=== PATIENT | female | born 1960 | race Asian ===

== ENCOUNTER 2016-06-25 12:34 | Day surgery (SDC) | payer OTHER ==
[~2016-06-25] VITALS: Ht 160 cm; Wt 74.0 kg
[2016-06-25] VITALS (10 sets, daily range): BP systolic 120–136; BP diastolic 73–89; PULSE 79–91; RESP 14–19; O2SAT 95–100
--- NOTE | 2016-06-25 09:11 | PCM.HPANE ---
Patient Data Date of Service: Jun 25, 2016 Surgeon Admitting Provider: Attending Provider:Jon Quiñonez MD Primary Care Physician:Balbir Other Provider:Ino Bui Anesthesia Reason for Visit JASON-3 Ht/WT & BMI Height (Feet): 5 Height (Inches): 3 Weight (Kilograms): 74.842 Body Mass Index 29.00 Allergies Coded Allergies: No Known Allergies (Unverified , 06/25/16) Past Anesthesia History Anesthesia History: Denies:: Fam Anesthesia Reaction, Fam Malignant Hypertherm Diabetes History Hx Diabetes?: No ("PRE" DIABETES) MRSA MRSA: No Medications Reported Medications Ibuprofen 600 Mg [id number] Mg PO QID PRN For Pain Ref 0 06/24/16 Terbinafine (Lamisil)250 Mg [id number] Mg PO DAILY 06/24/16 Naproxen 500 Mg Mqn991 Mg PO BID PRN For Pain Ref 0 06/24/16 History History of ENT Problems?: No Hx of Heart Problems?: No Cardiovascular History: Denies:: Hypertension Hx of Respiratory Problem?: No Respiratory History: Denies:: Use of C-PAP Machine Hx Neurologic Problems?: No Hx of GI Problems?: No Hx of Problems?: No Female Hx: Denies:: Currently Skin History: Denies:: History Skin Disorders? Pressure Ulcers Hx Musculoskeletal Problems?: Yes Musculoskeletal History: Positive for:: Musculoskeletal Trauma (C/OF LT KNEE PAIN) Hx of Psycho/Social Problems?: No Hx Surgeries?: No Hx Any Other Health Problems?: No Other History: Denies:: Cancer Endocrine Disease Hospitalization Thyroid Disease Hx Diabetes: No ("PRE" DIABETES) Have You Smoked inLast 12 mo: No Stop/Bang Treated for Sleep Apnea?: No Do You Have a CPAP Machine?: No S-Snoring: Do You Snore Loudly: No T-Tired: feel tired, fatigued: No O-Obsered: Observed not breath: No P-Blood Pressure: treated: No B- Body Mass Index > 35 kg/m2: No A- Age over 50: Yes N- Neck Large Circumference: No G- Gender Male: No GARRETT Total Score: 1 GARRETT Risk Assessment: Low Risk, <3 Yes GARRETT Category 1: Yes Risk Assessment Category Category 1A: Patient has history of documented sleep apnea, and HAS NOT received any narcotic, sedative or anesthesia administration during this stay. Category 1B: Patient has history of documented sleep apnea, and HAS received any narcotic , sedative or anesthesia administration during this stay Category 2: Patient has SUSPECTED Obstructive Sleep Apnea, and HAS received any narcotic , sedative or anesthesia administration during this stay. Category 3: Patient has SUSPECTED Obstructive Sleep Apnea and HAS NOT received narcotic, sedative or anesthesia administration during this stay. Category 4: Outpatient in Procedural Areas with known sleep apnea or who screen positive for High Risk via the STOP/BANG questionnaire. Exam Exam General Appearance: Alert, Oriented X3, Cooperative, No Acute Distress HEENT/AIRWAY: MP 2, Mouth Opening (Prominent incisors) Lungs: Clear to Auscultation, Normal Air Movement Heart: Exam Unremarkable, Normal S1, Normal S2 Plan Impression Patient chart reviewed, patient interviewed and anesthestic plan with risks, benefits, and alternatives discussed, and informed consent obtained. ASA Physical Status: ASA1 Normal Healthy Anesthetic Plan: GA Bene/Risks/Altern/Consents: Yes HP Complete Prior to Induction: Yes Farshad Briscoe DO Jun 25, 2016 09:11
[~2016-06-25 12:34] MED LIST: IBUP-1827 PO; Ketamine 10 mg/mL 20 mL Inj ONE; NPR500T PO; TERB250T4 PO; fentaNYL-PF 50 mCg/mL 2 mL Inj ONE
[2016-06-25] MEDS: Lactated Ringer's 1,000 ML IV SCH ×2 (13:11→15:00)
[2016-06-25] MEDS ORDERED: oxyCODONE-Acetamin 5-325 mg Tablet PO PRN (14:15)
[2016-06-25] MEDS ORDERED: Ketorolac 15 mg/mL Inj IVPUSH ONE (14:15)
--- NOTE | 2016-06-25 14:18 | PCM.DIOB ---
Obstetrical Disch Instruction Date of Service: Jun 25, 2016 Dates of Hospitalization Date of Hospital Admission Providers Admitting Physician: Primary Care Physician: Nopcp Attending Physician: Jon Quiñonez MD Discharge Diagnosis Discharge Diagnosis S/P LEEP for JASON 3 in ECC and cervical biopsy Post Operative diagnosis S/P LEEP for JASON 3 in ECC and cervical biopsy Problems: Diet Discharge Diet: No restrictions Activity Discharge Activity-General: Pelvic Rest for 6 weeks (no sex , tampons nor douching), Be up and about, Balance rest and activity, Activity as pain allows, Activity as energy allows, No lifting >15 pounds for 2 weeks Dressing and Incisional Care Hygiene: May shower Follow Up Plan Follow-up Provider (F9): Jon Quiñonez MD Follow-up appointment: Weeks (2) Call your provider for: Fever or Chills, Shortness of breath, Heavy vaginal bleeding, Heavy bleeding, Epigastric pain, Excessive constipation Jon Quiñonez MD Jun 25, 2016 14:17
[2016-06-25] MEDS ORDERED: Lactated Ringer's 1,000 ML IV SCH (16:04)
[2016-06-25] MEDS ORDERED: Lactated Ringer's 500 ML IV PRN (16:04)
[2016-06-25] MEDS ORDERED: Atropine 0.4 mg/mL Inj IVPUSH PRN (16:05)
[2016-06-25] MEDS ORDERED: HYDROmorphone 1 mg/mL Inj IVPUSH PRN (16:05)
[2016-06-25] MEDS ORDERED: MetoCLOpramide 5 mg/mL 2 mL Inj IVPUSH PRN (16:05)
[2016-06-25] MEDS ORDERED: Phenylephrine 10,000 mCg/mL Inj IVPUSH PRN (16:05)
[2016-06-25] MEDS ORDERED: Dexamethasone 4 mg/mL Inj IVPUSH PRN (16:05)
[2016-06-25] MEDS ORDERED: EPHEDrine Sulfate 50 mg/mL Inj IVPUSH PRN (16:05)
[2016-06-25] MEDS ORDERED: Labetalol 5 mg/mL 4 mL Inj IV PRN (16:05)
[2016-06-25] MEDS ORDERED: fentaNYL-PF 50 mCg/mL 2 mL Inj IVPUSH PRN (16:05)
[2016-06-25] MEDS ORDERED: Ondansetron 2 mg/mL 2 mL Inj IVPUSH PRN (16:05)
[2016-06-25] MEDS ORDERED: Ketorolac 15 mg/mL Inj IM ONE (16:35)
[2016-06-25] MEDS ORDERED: Ketorolac 15 mg/mL Inj IV ONE (16:35)
--- NOTE | 2016-06-25 16:35 | PCM.ANEP1 ---
Post Anesthesia Phase 1 PACU Phase 1 Assessment Date of Service: Jun 25, 2016 Vital Signs Vital Signs Date Time Temp Pulse Resp B/P Pulse Ox O2 Delivery O2 Flow Rate FiO2 06/25/16 13:25 36.2 85 16 125/76 95 Room Air Anesthetic Administered: GA Level of Alertness: Drowsy, not talking LACY's with Equal Strength: Yes Pain: No Nausea or Vomiting: No Oxygen Delivery: Simple Mask Lungs: Clear to Auscultation, Normal Air Movement Dermatome Level: Full Sensation Farshad Briscoe DO Jun 25, 2016 16:35
--- NOTE | 2016-06-25 16:51 | PCM.ANEP2 ---
Post Anesthesia Evaluation ASA/CMS Post Anesthesia Date of Service: Jun 25, 2016 VS in Patient's Normal Range?: Yes Resp Stable; Airway Patent?: Yes CV Function & Hydration Stable: Yes Mental Status Recovered?: Yes Pain control Satisfactory?: Yes N/V Control Satisfactory?: Yes Farshad Briscoe DO Jun 25, 2016 16:51
--- NOTE | 2016-06-25 18:07 | OP ---
[address] [address] OPERATIVE REPORT PATIENT: MONIKA PEDERSON : 1960 MR#: [id number] ADMIT: 06/25/2016 JOB ID: [id number] DATE OF SURGERY: 06/25/2016 PREOPERATIVE DIAGNOSIS(ES): Sever Cervical Intraepithelial Neoplasia (JASON-3) in endocervical curettage and cervical biopsy. POSTOPERATIVE DIAGNOSIS(ES): Sever Cervical Intraepithelial Neoplasia (JASON-3) in endocervical curettage and cervical biopsy. OPERATION PERFORMED: Loop electrosurgical excision procedure of the cervical transformation zone with top-hat excision of endocervical canal and endocervical curetting. SURGEON: Jon Quiñonez MD INNER TUBE INSERTER: Elliot Higgins MD. Adjunct History Instructor was needed for retraction and exposure. ANESTHESIA: General. FINDINGS: Exam under anesthesia revealed a retroverted, retroflexed eight week size uterus, mobile. No palpable adnexal masses. After application of Lugol's solution revealed an area of non-uptake around the entire squamocolumnar junction and transformation zone, extended more anteriorly at 12 o'clock. Otherwise, no gross cervical masses or abnormalities. SPECIMENS: Endocervical curettings, endocervical canal, anterior cervical lip and posterior cervical lip. ESTIMATED BLOOD LOSS: 25 mL. IV FLUIDS: 600 mL of crystalloid fluid. COMPLICATIONS: None. IMPLANTS: None. PROCEDURE: after informed consent was obtained, the patient was taken to the operation room. She was placed under general anesthesia. Then, she was placed in dorsal lithotomy position. She was prepped and draped in usual sterile fashion. A weighted speculum was placed in the posterior vaginal vault. Anterior retractor was placed with good visualization of the cervix. Anterior lip of the cervix was grasped with single-tooth tenaculum. Lugol solution was used to paint the entire cervix. The area of non-uptake was noted, as mentioned above. Then, a size 2 x 0.8 cm loop electrode was used to excise the anterior part and inferior part of the cervical lip to include the area of decreased/ non-uptake of the lugol's solution. A 3rd pass was performed in the inferior aspect of the cervical lip to obtain clear margins. Then a smaller size loop electrode 1.5 x 1.2 cm was used to obtain a top-hat fashion excision sample from the endocervix. Then, silver roller ball cautery was used to cauterize the excised specimen bed with excellent hemostasis. Then, endocervical curettage was performed. All specimens were sent to Pathology. The single-tooth tenaculum was removed from the anterior cervical lip. The site of the tenaculum insertion was hemostatic. Monsel's solution was applied at the cervix at the excised specimen bed and the site of the tenaculum insertion. All instruments were removed. The patient tolerated the procedure well and was transferred to the recovery room in a stable condition. All instrument, needle, sponge counts were correct x2. I, Jon Quiñonez MD, was present and scrubbed for the entire procedure. SONNY
--- NOTE | 2016-06-29 14:16 | PATH ---
SURGICAL PATHOLOGY Attending Physician:Jon Quiñonez CASE STATUS: Signed Out PATIENT NAME: MONIKA PEDERSON PID: [id number] : 1960 DATE COLLECTED:06/25/2016 22:33 SPECIMEN: 1: Endocervix, Curettage 2: Cervix, Leep 3: Cervix, Leep 4: Cervix, Leep CLINICAL HISTORY: JASON-3 1). ENDOCERVICAL CURETTAGE 2). ANTERIOR CERVICAL LIP 3). POSTERIOR CERVICAL LIP 4). ENDOCERVICAL CANAL (IN TWO PEICES) FINAL DIAGNOSIS: 1.ENDOCERVICAL CURETTINGS: TISSUE FRAGMENTS PRESENT HIGHLY SUSPICIOUS FOR HIGH-GRADE SQUAMOUS INTRAEPITHELIAL LESION, HOWEVER, HISTOLOGY IS LIMITED DUE TO SEVERE CAUTERY ARTIFACT. 2.ANTERIOR CERVICAL LIP BIOPSY: HIGH-GRADE SQUAMOUS INTRAEPITHELIAL LESION (JASON 3) INVOLVING THE 12-3 QUADRANT THE 9-12 QUADRANT. 3.POSTERIOR CERVICAL LIP: NEGATIVE FOR DEFINITE SIGNIFICANT ATYPIA; HOWEVER, HISTOLOGY IS LIMITED DUE TO SEVERE CAUTERY ARTIFACT. 4.ENDOCERVICAL CANAL BIOPSIES:CHANGES HIGHLY SUSPICIOUS FOR HIGH-GRADE SQUAMOUS INTRAEPITHELIAL LESION; HOWEVER, HISTOLOGIC EVALUATION GREATLY LIMITED DUE TO SEVERE CAUTERY ARTIFACT. ICD10 CODE D06.9 GROSS DESCRIPTION: The specimens are received in formalin, labeled with the patient's name, and sublabeled as the following: (1) E. C. C.; (2) anterior cervical lip; (3) posterior cervical lip; (4) cervical cannal. (1) The specimen consists of clear colorless gelatinous material containing speckles of hemorrhagic tissue (0.9 x 0.5 x 0.1 cm). Section code: (1A) tissue. Specimen totally submitted. (2) The specimen consists of a piece of cervical tissue designated as anterior cervical lip (0.4 cm 12:00 to 6:00, 2.5 cm 3:00 to 12:00, 2.5 centimeters superficial to deep). The mucosa is warren-rincon smooth shiny with an indented focally dark brown-pink area (0.9 x 0.6 x 0.1 cm) located 0.1 cm from the superficial and deep resection margins within the 12:00 to 3:00 region. The endocervix is rincon and finely granular. No nodules, masses, lesions, other irregular areas are identified. Ink code: blue-radial; black-deep. Section code: (2A) 12:00 to 3:00; (2B) 9:00 to 12:00. Specimen entirely submitted. (3) The specimen consists of 2 pieces of cervical tissue designated as posterior cervical lip (piece #1: 0.4 cm 12:00 to 6:00 , 1.6 cm in 3:00 to 9:00, 1.5 cm superficial to deep; piece #2: 0.4 cm 12:00 to 6:00, 2.5 cm 3:00 to 9:00, 1.1 cm superficial to deep). The mucosa is rincon-pink smooth shiny and flat. The endocervix is rincon and finely granular. No nodules, masses or lesions are identified. Ink code: blue-radial; black-deep. Section code: (3A) piece #1, serially sectioned; (3B) piece #2, serially sectioned. Specimen entirely submitted. (4) The specimen consists of 2 pieces of cervical tissue designated as endocervical canal (piece #1:1.6 x 1.1 x 0.2 cm; piece #2:1.7 x 1.5 x 0.2 cm). The pieces cannot be oriented as other than for the radial margin. Both pieces are rincon and focally pale burgos and bosselated. Ink code: blue-radial. Section code: (4A) piece #1, serially sectioned; (4B) piece #2, serially sectioned. Specimen entirely submitted. 06/27/16 JM MICRO DESCRIPTION: See diagnosis. ICD-9 CODES: CPT CODES: 1: 77292 2: 11075 3: 44201 4: 30490 Electronically Signed Out Naun Patino MD [facility] [address], [place] [address] Technical component performed at [facility], [address], [place], [address]
== END 2016-06-25 23:59 | disposition home or self-care (01) ==
LOC: SAS 12:34
PROVIDERS: ATTEND Obstetrics & Gynecology
DX: D06.0 Carcinoma in situ of endocervix (principal); R73.03 Prediabetes
CPT/HCPCS: 57522; 88305; 88307; J1885; J2250; J3010; J7120

== ENCOUNTER → 2017-01-21 | Day surgery (SDC) | payer OTHER ==
[2017-01-21] VITALS (7 sets, daily range): BP systolic 98–144; BP diastolic 53–82; PULSE 78–113; RESP 15–21; O2SAT 94–98
[~2017-01-21] VITALS: Ht 162.6 cm; Wt 67.9 kg
[~2017-01-21] MED LIST changes: +Atropine 0.4 mg/mL Inj IVPUSH PRN; +Bupivacaine-MPF 0.5% W/EPI 30 mL Inj INFILTRATE ONE; +Dexamethasone 4 mg/mL Inj IVPUSH PRN; +Dexamethasone 4 mg/mL Inj ONE; +EPHEDrine Sulfate 50 mg/mL Inj IVPUSH PRN; +EPHEDrine/NS 5 mg/mL 5 mL Syringe ONE; +HYDROmorphone 1 mg/mL Inj IVPUSH PRN; -IBUP-1827 PO; +IBUP200C PO; -Ketamine 10 mg/mL 20 mL Inj ONE; +Lactated Ringer's 1,000 ML IV SCH; +Lactated Ringer's 500 ML IV PRN; +MetoCLOpramide 5 mg/mL 2 mL Inj IVPUSH PRN; +Ondansetron 2 mg/mL 2 mL Inj IVPUSH PRN; +Ondansetron 2 mg/mL 2 mL Inj ONE; +Phenylephrine 10,000 mCg/mL Inj IVPUSH PRN; +Propofol 10,000 mCg/mL 20 mL Inj ONE; +fentaNYL-PF 50 mCg/mL 2 mL Inj IVPUSH PRN; +oxyCODONE-Acetamin 5-325 mg Tablet PO ONE
[2017-01-21] MEDS: Lactated Ringer's 1,000 ML IV SCH ×2 (13:22→15:18)
--- NOTE | 2017-01-21 14:57 | PCM.HPANE ---
Patient Data Date of Service: Jan 21, 2017 Surgeon Admitting Provider: Attending Provider:Jon Quiñonez MD Primary Care Physician:Balbir Other Provider:Ino Bui Anesthesia Reason for Visit Atypical Glandular Cells In Pap And Cin3 Ht/WT & BMI Height (Feet): 5 Height (Inches): 4 Weight (Kilograms): 67.9 Body Mass Index 25.00 Allergies Coded Allergies: No Known Allergies (Unverified , 01/21/17) Past Anesthesia History Anesthesia History: Denies:: Anesthesia Reactions, Fam Anesthesia Reaction, Fam Malignant Hypertherm Diabetes History Hx Diabetes?: No MRSA MRSA: No Medications Home Meds Incl Beta Artur: No Reported Medications Naproxen 500 Mg Hhb014 Mg PO BID PRN For Pain Ref 0 01/13/17 Ibuprofen 200 Mg [id number] Mg PO QID PRN For Pain Ref 0 01/13/17 Terbinafine (Lamisil)250 Mg [id number] Mg PO DAILY 01/13/17 History History of ENT Problems?: No HEENT History: Denies:: Abnormal Airway Difficult Intubation Denture Type: None Teeth Condition: Within Normal Limits Hx of Heart Problems?: No Cardiovascular History: Denies:: Chest Pain Hypertension Hx of Respiratory Problem?: No Respiratory History: Denies:: Use of C-PAP Machine Hx Neurologic Problems?: No Neurological History: Denies:: CVA Multiple Sclerosis Parkinson's Disease Seizures Hx of GI Problems?: No Hx of Problems?: No Female Hx: Denies:: Currently Skin History: Denies:: History Skin Disorders? Pressure Ulcers Hx Musculoskeletal Problems?: No Musculoskeletal History: Positive for:: Musculoskeletal Trauma (C/OF LT KNEE PAIN) Hx of Psycho/Social Problems?: No Hx Surgeries?: No Hx Any Other Health Problems?: No Other History: Denies:: Cancer Endocrine Disease Hospitalization Thyroid Disease Hx Diabetes: No Hx Alcohol Use: NoHx Substance Use: No Smoking Status: Never Smoker Have You Smoked inLast 12 mo: No Stop/Bang S-Snoring: Do You Snore Loudly: No T-Tired: feel tired, fatigued: No O-Obsered: Observed not breath: No P-Blood Pressure: treated: No B- Body Mass Index > 35 kg/m2: No A- Age over 50: Yes N- Neck Large Circumference: No G- Gender Male: No GARRETT Total Score: 1 GARRETT Risk Assessment: Low Risk, <3 Yes Risk Assessment Category Category 1A: Patient has history of documented sleep apnea, and HAS NOT received any narcotic, sedative or anesthesia administration during this stay. Category 1B: Patient has history of documented sleep apnea, and HAS received any narcotic , sedative or anesthesia administration during this stay Category 2: Patient has SUSPECTED Obstructive Sleep Apnea, and HAS received any narcotic , sedative or anesthesia administration during this stay. Category 3: Patient has SUSPECTED Obstructive Sleep Apnea and HAS NOT received narcotic, sedative or anesthesia administration during this stay. Category 4: Outpatient in Procedural Areas with known sleep apnea or who screen positive for High Risk via the STOP/BANG questionnaire. Exam Exam Vital Signs Vital Signs Date Time Temp Pulse Resp B/P Pulse Ox O2 Delivery O2 Flow Rate FiO2 01/21/17 13:40 36.1 78 16 127/77 98 Room Air General Appearance: Alert, Oriented X3, Cooperative, No Acute Distress HEENT/AIRWAY: MP 2 Lungs: Clear to Auscultation, Normal Air Movement Heart: Exam Unremarkable, Regular Rate/Rhythm, No Murmurs/Rubs/Gallops Meds/Labs/Diagnostics Admission Meds Current Medications Lactated Ringer's (Lr) 1,000 ml @ 120 mls/hr Q8H20M IV Last administered on t 13:22; Start 01/21/17 at 05:00; Stop 01/21/17 at 13:22; Status DC Labs Test 01/21/17 13:50 Hold Purple Top Tube Received (Received) Plan Impression Patient chart reviewed, patient interviewed and anesthestic plan with risks, benefits, and alternatives discussed, and informed consent obtained. NPO per Anesth. Guidelines: Yes ASA Physical Status: ASA1 Normal Healthy Anesthetic Plan: GA Bene/Risks/Altern/Consents: Yes HP Complete Prior to Induction: Yes Blu Valadez MD Jan 21, 2017 14:57
--- NOTE | 2017-01-21 16:42 | PCM.ANEP1 ---
Post Anesthesia PACU Phase 1 Assessment Date of Service: Jan 21, 2017 Vital Signs 37 111/60 100 15 92% RA Anesthetic Administered: GA Level of Alertness: Sleeping, hard to arouse LACY's with Equal Strength: Yes Pain: No Nausea or Vomiting: No CV Function & Hydration Stable: Yes Airway Device: Oxygen Delivery: Room Air Lungs: Clear to Auscultation, Normal Air Movement PACU Phase 2 Assessment Complications: No Follow up Care: N/A Patient Instructions Provided: N/A Blu Valadez MD Jan 21, 2017 16:42
--- NOTE | 2017-01-21 17:00 | PCM.DIGYN ---
Surgical Discharge Instruction Dates of Hospitalization Date of Hospital Admission Providers Admitting Physician: Primary Care Physician: Balbir Attending Physician: Jon Quiñonez MD Diagnosis at Time of Discharge Diagnosis at time of discharge status post cold knife cone and hysteroscopy and D&C Problems: Diet Discharge Diet: No restrictions Activity Discharge Activity-General: Balance rest and activity, No lifting >15 pounds for 2 weeks, No lifting >10 pounds for 4-6 weeks, Other (no sex, tampons and no douching for 4-6 weeks ) Dressing and Incisional Care Hygiene: May shower, NO bathtub, hot tub or whirlpool Follow Up Plan Follow-up Provider (F9): Jon Quiñonez MD Follow-up appointment: Weeks (two ) Call your provider for: Fever, Chills, Shortness of breath, Vomitting, Heavy vaginal bleeding, Wound redness, Increasing pain Jon Quiñonez MD Jan 21, 2017 17:00
--- NOTE | 2017-01-22 18:59 | OP ---
[address] [address] OPERATIVE REPORT PATIENT: MONIKA PEDERSON : 1960 MR#: [id number] ADMIT: 01/21/2017 JOB ID: [id number] DATE OF SURGERY: 01/21/2017 PREOPERATIVE DIAGNOSIS(ES): 1. Inadequate endocervical curetting in followup surveillance after loop electrosurgical excision procedure was done for cervical intraepithelial neoplasia-3, with positive margin. 2. Atypical glandular cells in Pap smear. POSTOPERATIVE DIAGNOSIS(ES): 1. Inadequate endocervical curetting in followup surveillance after loop electrosurgical excision procedure was done for cervical intraepithelial neoplasia-3, with positive margin. 2. Atypical glandular cells in Pap smear. SURGEON: Jon Quiñonez MD. VICE PRESIDENT FOR INSTRUCTION: Elliot Higgins MD. Piece Goods Clerk was required for retraction and exposure and safe completion of the procedure. PROCEDURE: 1. Hysteroscopy and dilatation and curettage. 2. Cold knife cone procedure. COMPLICATIONS: None. IMPLANTS: None. BLOOD PRODUCT ADMINISTRATION: None. ESTIMATED BLOOD LOSS: 30 mL ANESTHESIA: General. INTRAVENOUS FLUIDS: 900 mL. URINE OUTPUT: 200 mL. SPECIMEN REMOVED: Cold knife cone of the cervix. Endocervical curetting, endometrial curetting. FINDINGS: Cervix noticed to be very small in size secondary to previous LEEP procedure. Anterior lip was more prominent than the posterior lip. Uterine cavity noted to be with no lesions, normal in shape with atrophic appearance. Both ostia were visualized. PROCEDURE: After informed consent was obtained, patient was taken to the operation room. She was placed under general anesthesia and she was prepped and draped in usual sterile fashion for pelvic procedure. Then, heavy weighted speculum was placed in the posterior vaginal vault. Anterior retractor was placed with good visualization of the cervix. Anterior lip of the cervix was grasped with single-tooth tenaculum. Cervical os noted to be very stenotic. Careful and gentle cervical dilatation was performed starting with a lacrimal duct dilator until achieving a 6 mm size dilatation. Then, the hysteroscope was introduced without difficulty. Endometrial cavity was noted to be normal in shape and with atrophic appearance of the endometrial lining. No lesions. Both ostia were visualized. Hysteroscope was removed. Then an ECC specimen was collected from the endocervical canal. Then, a medium-size curette was passed into the uterine cavity and systematic curetting in all quadrants was performed. Minimal tissue was obtained. A gritty sensation was felt throughout the uterine cavity. Then, attention was turned to the cold knife cone part of the procedure. The cervix was carefully examined, and the size of the posterior lip was evaluated with palpation and visualization, demarcating edges of the cervix. Then 1% lidocaine with epinephrine, total of approximately 12 cc was injected in a circumferential fashion through the substance of the cervix. Then, the cervix was painted with Lugol solution. Homogeneous uptake was noted throughout the cervical surface. Then, stitches were placed at 3 and 9 o'clock at sites of the cervix through the cervix body to help in traction of the cervix. Then, using 11 size blade, conization of the cervix was performed in a circumferential manner around the cervical canal. Intact specimen was obtained and one single specimen. That was tagged at 6 o'clock with long suture and at 10 o'clock with short suture. Then, the bed of the excised specimen was cauterized with silver ball for the attention to avoid cauterization of the vaginal wall at the reflection between the cervix and the vaginal wall. Hemostasis was ensured. Then, cervical curetting was performed to ensure patency of the cervical canal. Then, the anterior tenaculum was removed with minimal bleeding at the site of the tenaculum to ensure hemostasis. Gentle cautery was performed followed by Monsel solution. That was applied over the cervix. All instruments were removed from the vagina. Cervix was hemostatic at the end of the procedure. All instrument, needle, sponge counts were correct x2. The patient tolerated the procedure well and was transferred out of the operation room to the recovery in stable condition. Jon Liriano MD, was present and scrubbed for the entire procedure.
--- NOTE | 2017-01-27 19:08 | PATH ---
SURGICAL PATHOLOGY Attending Physician:Jon Quiñonez CASE STATUS: Signed Out PATIENT NAME: MONIKA PEDERSON PID: [id number] : 1960 DATE COLLECTED:01/21/2017 00:00 SPECIMEN: 1: Endocervix, Curettage 2: Endometrium, Curettage 3: Cervical, Cone CLINICAL HISTORY: ATYPICAL GLANDULAR CELLS IN PAP AND JASON 3 1). ENDOCERVICAL CURETTING 2). ENDOMETRIAL CURETTING 3). COLD KNIFE CONE FINAL DIAGNOSIS: 1. Endocervix, Curettage: Strips of endocervical and squamous epithelium negative for neoplasm. 2. Endometrium, Curettage: Strips of endometrial and endocervical epithelium negative for neoplasm. 3. Cervix, Conization: Endocervix and ectocervix negative for neoplasm. ICD10: R87.619 NOTE: This case is reviewed in conjunction with the prior LEEP specimen ([id number]) and the atypical squamous cells seen in that specimen are not present in the current case. As part of routine compliance quality performance analyst, Dr. Stack has reviewed select slides from parts 1 and 3, and agrees with the above interpretation. GROSS DESCRIPTION: The specimens are received in formalin, labeled with the patient's name, and sublabeled as the following: (1) endocervical curettage; (2) endometrial curetting; (3) cold knife cone. (1) The specimen consists of red-brown solid soft material and multiple fragments of rincon-white semi-translucent tissue (1.3 x 0.5 x 0.2 cm in aggregate). Section code: (1A) tissue. Specimen entirely submitted. (2) The specimen consists of red-brown solid soft material and multiple fragments of rincon-white semi-translucent tissue (1.5 x 1.0 x 0.2 cm in aggregate). Section code: (2A) tissue. Specimen entirely submitted. (3) The specimen consists of a cervical cone biopsy (1.0 cm 12:00 to 6:00, 0.6 cm 3:00 to 9:00, 1.6 cm ectocervix endocervix). The specimen is oriented with 2 black sutures (long-6:00, short-10:00). The specimen is radially sectioned clockwise from 12:00. The mucosa is burgos-pink smooth and shiny. The cut surface is burgos-white and smooth. No nodules, masses or lesions are identified. Ink code: black- deep; blue-radial; yellow-10:00 radial margin; orange-os. Section code: (3A) 12:00 to 3:00; (3B) 3:00 to 6:00; (3C) 6:00 to 9:00; (3D) 9:00 to 12:00. Specimen entirely cemented. 01/24/17 ICD-9 CODES: CPT CODES: 1: 11644 2: 71514 3: 06518 Electronically Signed Out Yuri Coto MD, Ph.D. [facility] [address], [place] [address] Technical component performed at [facility], [facility] [address], [place], [address]
== END | disposition home or self-care (01) ==
LOC: SAS 13:03
PROVIDERS: ATTEND Obstetrics & Gynecology
DX: D06.9 Carcinoma in situ of cervix, unspecified (principal)
CPT/HCPCS: 36415; 57520; 58558; 86850; J1100; J1885; J2405; J2704; J3010; J7120